=== PATIENT | female | born 1935 | race Caucasian/White ===

== ENCOUNTER 2017-03-06 18:07 | Observation (INO) | payer MEDICARE, OTHER ==
[2017-03-06 19:42] LABS: #Eosinphils 0.2 thou/uL (0.0-0.7); #Lymphocytes 2.5 thou/uL (1.20-3.40); #Monocytes 0.6 thou/uL (0.11-0.59); #Neutrophils 5.5 thou/uL (1.40-6.50); %Basophils 0.3 % (0.0-1.0); %Lymphocytes 28.1 % (21.0-51.0); %Monocytes 6.7 % (0.0-10.0); %Neutrophils 62.8 % (42.0-75.0); Hemoglobin 14.7 g/dL (12.0-16.0); Mean Corpuscular HGB CONC 33.4 g/dL (32.0-36.0); Mean Corpuscular Hemoglobin 31.9 pg (27.0-31.0); Mean Corpuscular Volume 95.5 fl (81.0-99.0); Mean Platelet Volume 6.5 fL (7.4-10.4); Platelet Count 309 thou/uL (130-400); RBC Distribution Width 13.1 % (11.5-14.5); Red Blood Cell (RBC) Count 4.61 mill/uL (4.20-5.40); White Blood Cell (WBC) Count 8.8 thou/uL (4.8-10.8)
[2017-03-06] MEDS ORDERED: Nitroglycerin 0.4 MG TAB (25 Tab Bottle) ONE (19:50)
[2017-03-06 20:03] LABS: ALT (SGPT) 26 U/L (8-55); AST (SGOT) 18 U/L (5-34); Albumin 3.9 g/dL (3.4-4.8); Alkaline Phosphatase 128 U/L (40-150); Anion Gap 13 mmol/L (10-20); BUN (Urea Nitrogen) 16 mg/dL (9.8-20.1); Bilirubin, Total 0.3 mg/dL (0.2-1.2); CK (CPK) 21 U/L (29-168); Calc. Creatinine Clearance 0 mL/min (70-130); Calcium 10.2 mg/dL (7.8-10.44); Carbon Dioxide 28 mmol/L (23-31); Chloride 103 mmol/L (98-107); Estimated GFR-MDRD 47; Globulin 3.2 g/dL (2.4-3.5); Glucose 112 mg/dL (83-110); Lipase 16 U/L (8-78); Potassium 4.6 mmol/L (3.5-5.1); Protein, Total 7.1 g/dL (6.0-8.3); Sodium 139 mmol/L (136-145)
[2017-03-06 20:07] LABS: CKMB 0.6 ng/mL (0-6.6); Troponin I Less than 0.010 ng/mL (< 0.028)
--- NOTE | 2017-03-06 20:07 | RAD ---
CHEST ONE VIEW 03/06/17 HISTORY: Chest pain. COMPARISON: None. FINDINGS: Normal cardiac silhouette. Pulmonary vessels and hilum are normal. Costophrenic angles are clear. No consolidation or mass. No pneumothorax or osseous abnormalities. IMPRESSION: No acute cardiopulmonary process. POS: [facility]
[2017-03-06 22:20] LABS: Bilirubin Negative (Negative); Blood, Urine Negative (Negative); Clarity CLEAR (Clear); Glucose, Urine (Dipstick) Negative (Negative); Leukocyte Moderate (Negative); Nitrite Negative (Negative); Protein, Urine (Dipstick) Negative (Neg-Trace); Specific Gravity, Urine 1.018 (1.002-1.036); Urobilinogen 0.2 mg/dL (0.2-1.0); pH, Urine 6.5 (5.0-9.0)
[2017-03-06 22:21] LABS: Bacteria/HPF None Seen HPF (None Seen); Hyaline Casts/LPF 4-6 HYALINE CAST LPF (0-3 Hyaline); Squamous Epithelial 0-3 HPF (0-3)
[2017-03-06 23:10] LABS: Troponin I Less than 0.010 ng/mL (< 0.028)
[2017-03-06] MEDS ORDERED: Ondansetron HCl/PF 4 MG/2 ML Vial IVP PRN (23:45)
[2017-03-06] MEDS ORDERED: Ondansetron ODT 4 MG TAB SL PRN (23:45)
[2017-03-06] MEDS ORDERED: Acetaminophen 325 MG TAB PO PRN (23:45)
[2017-03-07 00:21] VITALS: BMI 29.9
[2017-03-07] MEDS ORDERED: hydrALAZINE 20 MG/ML VIAL SLOW IVP PRN (04:58)
[2017-03-07] MEDS ORDERED: Nitroglycerin 0.4 MG TAB (25 Tab Bottle) PO PRN (05:16)
[2017-03-07] MEDS ORDERED: Acetaminophen 650 MG Suppository PR PRN (05:16)
[2017-03-07] MEDS ORDERED: Acetaminophen 325 MG TAB PO PRN (05:16)
[2017-03-07] MEDS ORDERED: Polyethylene Glycol 3350 17 GM Packet PO PRN (05:19)
[2017-03-07] MEDS ORDERED: Ondansetron ODT 8 MG TAB PO PRN (05:19)
[2017-03-07] MEDS ORDERED: Lidocaine 2% Viscous Solution 10 ML, Aluminum & Magnesium Hydroxide 30 ML SSW PRN (05:24)
[2017-03-07] MEDS ORDERED: Bisacodyl 5 MG TAB PO PRN (05:46)
[2017-03-07] MEDS ORDERED: Bisacodyl 10 MG SUPP PR PRN (05:46)
[2017-03-07] MEDS ORDERED: Levothyroxine Sodium 50 MCG TAB PO SCH (06:00)
[2017-03-07] MEDS ORDERED: Sodium Chloride 0.9% 1,000 ML IV SCH (06:00)
[2017-03-07] MEDS: clonazePAM 0.5 MG TAB PO PRN ×2 (06:09→15:44)
--- NOTE | 2017-03-07 06:22 | HP ---
PRIMARY CARE PHYSICIAN: Dr. Ivania Pradhan. CHIEF COMPLAINT: Chest pain. HISTORY OF PRESENT ILLNESS: Ms. Griffin is a pleasant 81-year-old lady who was seen at [facility] on 03/07/2017. She reports that she has had chest discomfort since 12/2016. She describes it as a burning sensation in the retrosternal region, radiating to both arms, occurring on a daily basis, 7/10 at its worst, s he has difficulty breathing when she has the symptoms. She also reports nausea and lightheadedness w ith the pain. In December, she was seen by a housekeeping supervisor hotel and had upper scope. She was told that she had infl ammation in her stomach. She was started on Protonix and Carafate and subsequently she was taken off of Protonix. She reports that the medications did not help her much. She also reports generalized weakness. She has not been eating well. She reports that yesterday she had pain that was more severe than usual. She therefore came to the e mergency room. REVIEW OF SYSTEMS: The following complete review of systems was negative, unless otherwise mentioned in the HPI or below: Constitutional: Weight loss or gain, ability to conduct usual activities. Skin: Rash, itching. Eyes: Double vision, pain. ENT/Mouth: Nose bleeding, neck stiffness, pain, tenderness. Cardiovascular: Palpitations, dyspnea on exertion, orthopnea. Respiratory: Shortness of breath, wheezing, cough, hemoptysis, fever or night sweats. Gastrointestinal: Poor appetite, abdominal pain, heartburn, nausea, vomiting, constipation, or diarr hea. Genitourinary: Urgency, frequency, dysuria, nocturia. Musculoskeletal: Pain, swelling. Neurologic/Psychiatric: Anxiety, depression. Allergy/Immunologic: Skin rash, bleeding tendency. PAST MEDICAL HISTORY: Significant for hypothyroidism. PAST SURGICAL HISTORY: Significant for cholecystectomy and back surgery. PSYCHIATRIC HISTORY: Significant for anxiety. SOCIAL HISTORY: The patient denies tobacco use, alcohol use or recreational drug use. FAMILY HISTORY: Significant for congestive heart failure in her mother. CODE STATUS: I discussed her code status. Both she and her daughter report that she has a living wi ll, but are unsure regarding her code status. They are aware that she is full code by default. They will let the medical team know if her code status changes. ALLERGIES: No known drug allergies. CURRENT MEDICATIONS: Levothyroxine 50 mcg daily, clonazepam 0.5 mg 3 times a day, vitamin D2 50,000 units weekly, sertraline 25 mg daily. PHYSICAL EXAMINATION: GENERAL: Ms. Griffin is awake and alert, not in acute distress. VITAL SIGNS: Blood pressure is 179/80, pulse is 88. She is breathing at rate of 16, and saturating 99% on room air. She is afebrile. EYES: No scleral icterus. No conjunctival pallor. ENT: Moist mucosal membranes, no oropharyngeal erythema or exudates. NECK: Supple, nontender, normal range of movement, trachea is midline. CARDIOVASCULAR: S1 and S2 are heard, regular. Peripheral pulses are palpable. No carotid bruit, no pericardial rub. ABDOMEN: Soft, nontender, bowel sounds heard, no hepatomegaly, no splenomegaly. NEUROLOGIC: Cranial nerves II through XII are intact. Deep tendon reflexes are 2+. SKIN: No rashes or subcutaneous nodules. MUSCULOSKELETAL: Power is 5/5 in all 4 extremities. Normal range of movement at all major extremity joints. LYMPHATIC: No cervical lymphadenopathy. PSYCHIATRIC: Normal mood, normal affect, patient is oriented to person, place, and time. LABORATORY DATA AND IMAGING: Ms. Griffin's labs and investigations were reviewed. I reviewed her elect rocardiogram, which shows sinus tachycardia with ST depressions in the lateral leads. I also reviewe d her chest x-ray, which does not show any pulmonary infiltrates. Laboratory investigation show an u nremarkable CBC, mildly elevated creatinine of 1.12, otherwise unremarkable comprehensive metabolic p rofile, normal troponin I x3, normal lipase and a slightly elevated BNP of 129. Urinalysis is positi ve for moderate amount of leukocyte esterase. ASSESSMENT AND PLAN: Ms. Griffin is a pleasant 81-year-old lady who was seen at [facility] on 03/07/2017. Her problem list includes: 1. Chest pain: Ms. Griffin's chest pain is atypical for acute coronary syndrome. However, given her a ge, she will be admitted to the hospital for telemetry monitoring and to rule out acute coronary synd arnie. We will check nuclear stress test. We will also check D-dimer to rule out venous thromboembol ism. 2. Hypothyroidism: We will continue Synthroid, check TSH. 3. Renal insufficiency: Chronicity unclear. Provide intravenous fluids, given patient's history of poor oral intake. 4. Positive urinalysis: The patient denies any dysuria or increased frequency of urination. I had a lengthy discussion with the patient, we will hold off on antibiotics. Many thanks for allowing me to participate in your patient's care. Please feel free to contact me wi th any questions or concerns. LEVEL OF RISK: High. LEVEL OF COMPLEXITY: High.
[2017-03-07] MEDS ORDERED: FLU VACC TS2017-18 (>65YR) 0.5 ML SYRINGE IM ONE (09:00)
[2017-03-07 15:23] VITALS: BP 148/73; TEMP 97.9
--- NOTE | 2017-03-07 15:43 | NM ---
NUCLEAR MEDICINE CARDIAC MYOCARDIAL PERFUSION SPECT EJECTION FRACTION STUDY WALL MOTION CINE: HISTORY: 81-year-old female with chest pain. TECHNIQUE: Number of days: 1 Rest study: Tc99m sestamibi (Cardiolite) dose: 10.5 mCi Pharmacologic stress: adenosine dose: 47 mg Stress study: Tc99m sestamibi (Cardiolite) dose: 30.2 mCi FINDINGS: CARDIAC (MYOCARDIAL PERFUSION) SPECT Distribution of sestamibi is homogeneous throughout the left ventricle, with no fixed or reversible m yocardial perfusion defects. EJECTION FRACTION STUDY EF = 95% WALL MOTION CINE The left ventricular wall motion is normal. There is normal systolic wall thickening. IMPRESSION: Normal. pat POS: [facility]
[2017-03-07] MEDS ORDERED: ADENOSINE 60 MG/20 ML VIAL ONE (16:39)
[2017-03-07] MEDS ORDERED: ALPRAZolam 0.5 MG TAB PO SCH (21:00)
--- NOTE | 2017-03-08 15:25 | EKG ---
Test Reason : CP Blood Pressure : / mmHG Vent. Rate : 106 BPM Atrial Rate : 106 BPM P-R Int : 204 ms QRS Dur : 082 ms QT Int : 340 ms P-R-T Axes : 076 -01 097 degrees QTc Int : 451 ms Sinus tachycardia Nonspecific ST and T wave abnormality Abnormal ECG Slight depression lateral leads, no reciprocal, changes Confirmed by GANGA DELGADO M.D. ([id number]), newspaper editor KYA NYE ([id number]) on 03/08/2017 3:25:34 PM Referred By: Confirmed By:GANGA DELGADO M.D.
--- NOTE | 2017-03-08 15:26 | EKG ---
Test Reason : Blood Pressure : / mmHG Vent. Rate : 083 BPM Atrial Rate : 083 BPM P-R Int : 256 ms QRS Dur : 074 ms QT Int : 368 ms P-R-T Axes : 082 -10 014 degrees QTc Int : 432 ms Sinus rhythm with 1st degree A-V block Otherwise normal ECG Confirmed by SANDY Najera, GANGA ([id number]), editor index KYA NYE ([id number]) on 03/08/2017 3:26:21 PM Referred By: Confirmed By:GANGA DELGADO M.D.
[2017-03-10] MEDS ORDERED: Ergocalciferol 1.25 MG(50,000 UNITS) CAP PO SCH (09:00)
--- NOTE | 2017-03-10 10:45 | STRESS ---
Acquisition Time: 2017-03-07 11:23:14 Total Exercise Time: 00:04:00 Test Indications: CHEST PAIN Medications: Protocol: ADENOSINE Max HR: 101 BPM 71% of Pred: 141 BPM Max BP: 146/076 mmHG Max Work Load: 1.0 METS THE PATIENT WAS INJECTED WITH ADENOSINE. SHE DID NOT DEVELOP CHEST PAIN. THERE WAS NO SIGNIFICANT ST DEPRESSION. AWAIT NUCLEAR IMAGES FOR DEFINITIVE DIAGNOSIS. Confirmed by AILEEN RÍOS ([id number]), design editor JAXON DIAZ ([id number]) on 03/10/2017 10:45:33 AM Referred By: MD Rustam MCLEAN Confirmed By:AILEEN RÍOS
--- NOTE | 2017-03-10 11:51 | DIS ---
For details of the history and physical, refer to dictations on record. SUMMARY: This is a 81-year-old female patient who presented with chest pain, felt to be atypical; ho wever, given her advanced age, the patient was admitted and ruled out of any acute coronary syndrome. Patient did undergo stress test, which came back and did not show any evidence of ischemia, essenti ally normal myocardial perfusion test. As a result of having maintained sustained clinical improveme nt, patient was subsequently discharged on the following medications: Xanax 0.5 mg p.o. b.i.d., giovana min D 50,000 units every 7 days, Synthroid 50 mcg p.o. daily, Zofran 8 mg p.o. q.8 hours p.r.n., Melony Lax 17 grams p.o. daily p.r.n., Zoloft 25 mg p.o. daily. DISCHARGE INSTRUCTIONS: 1. Follow up with the primary care physician. 2. Re-present here in case of any relapse or deterioration in clinical condition.
== END 2017-03-07 18:29 | disposition home or self-care (01) ==
LOC: ERS 18:07 → 2SW 21:01
PROVIDERS: ADMIT Internal Medicine; ATTEND Internal Medicine
DX: R07.2 Precordial pain (principal); R53.1 Weakness; E03.9 Hypothyroidism, unspecified; F41.9 Anxiety disorder, unspecified; N28.9 Disorder of kidney and ureter, unspecified; Z79.899 Other long term (current) drug therapy; Z88.2 Allergy status to sulfonamides; Z90.49 Acquired absence of other specified parts of digestive tract; Z98.890 Other specified postprocedural states; Z82.49 Family history of ischemic heart disease and other diseases of the circulatory system
CPT/HCPCS: 71045; 78452; 80053; 82550; 82553; 83690; 83880; 84484 ×3; 85025; 85379; 93005; 93017; 96361 ×2; 96374; 99285; A9500; G0008; G0378; Q2036; 36415; 81003; 81015; 90471; 90682; 96360; J0153; J0360

== ENCOUNTER 2022-12-22 19:40 | Inpatient (IN) | payer MEDICARE ==
[2022-12-22 20:09] LABS: #Monocytes 0.8 thou/uL (0.11-0.59); #Neutrophils 11.6 thou/uL (1.40-6.50); %Basophils 0.2 % (0.0-1.0); %Lymphocytes 6.8 % (21.0-51.0); %Monocytes 5.6 % (0.0-10.0); Hemoglobin 11.1 g/dL (12.0-16.0); Mean Corpuscular HGB CONC 33.6 g/dL (32.0-36.0); Mean Corpuscular Hemoglobin 31.9 pg (27.0-31.0); Mean Corpuscular Volume 94.8 fl (78.0-98.0); Mean Platelet Volume 9.6 fL (7.4-10.4); Platelet Count 228 10x3/uL (130-400); RBC Distribution Width 14.7 % (11.5-14.5); Red Blood Cell (RBC) Count 3.48 mill/uL (4.20-5.40); White Blood Cell (WBC) Count 13.4 10x3/uL (4.8-10.8)
[2022-12-22 20:37] LABS: ALT (SGPT) 37 U/L (8-55); AST (SGOT) 28 U/L (5-34); Albumin 3.8 g/dL (3.4-4.8); Alkaline Phosphatase 143 U/L (40-110); Anion Gap 13 mmol/L (10-20); BUN (Urea Nitrogen) 28 mg/dL (9.8-20.1); Bilirubin, Total 0.5 mg/dL (0.2-1.2); Calc. Creatinine Clearance 0 mL/min (70-130); Carbon Dioxide 21 mmol/L (23-31); Chloride 101 mmol/L (98-107); Estimated GFR 46; Globulin 2.9 g/dL (2.4-3.5); Glucose 162 mg/dL (83-110); Protein, Total 6.7 g/dL (5.8-8.1); Sodium 131 mmol/L (136-145)
[2022-12-22 20:45] LABS: Troponin I 0.514 ng/mL (< 0.028)
[2022-12-22] MEDS ORDERED: cefTRIAXone (ROCEPHIN) 1 GM VIAL ONE (21:00)
[2022-12-22 21:13] LABS: Bacteria/HPF 3+ HPF (None Seen); Bilirubin Negative (Negative); Blood, Urine 3+ (Negative); CAUTI Indications for Culture Alt mental st,lethar; Clarity Extra Turbid (Clear); Glucose, Urine (Dipstick) Normal (Negative); Ketone, Urine Negative (Negative); Leukocyte 500 Leu/uL (Negative); Nitrite 2+ (Negative); Protein, Urine (Dipstick) 100 mg/dL (Neg-Trace); Specific Gravity, Urine 1.021 (1.002-1.036); Squamous Epithelial 0-3 HPF (0-3); Urobilinogen Normal mg/dL (Less than 2); WBC/HPF Greater than 50 HPF (0-3)
[2022-12-22 21:15] LABS: Urine Culture Reflex Yes Yes
[2022-12-22] MEDS ORDERED: Aspirin 325 MG TAB ONE (21:54)
[2022-12-22] MEDS ORDERED: LevoFLOXacin 750 mg/D5W 150 ml Premix Bag ONE (21:54)
[2022-12-22] MEDS ORDERED: Aspirin Chewable 81 MG TAB ONE (21:56)
[2022-12-22] MEDS ORDERED: Acetaminophen 325 MG TAB PO PRN (22:05)
[2022-12-22] MEDS ORDERED: Ondansetron PF 4 MG/2 ML Vial IVP PRN (22:05)
[2022-12-23 00:25] VITALS: BMI 32.1
[2022-12-23 01:32] LABS: Troponin I 0.405 ng/mL (< 0.028)
[2022-12-23 04:58] LABS: Hematocrit 31.5 % (36.0-47.0); Hemoglobin 10.3 g/dL (12.0-16.0); Mean Corpuscular HGB CONC 32.7 g/dL (32.0-36.0); Mean Corpuscular Hemoglobin 31.6 pg (27.0-31.0); Mean Corpuscular Volume 96.6 fl (78.0-98.0); Platelet Count 202 10x3/uL (130-400); RBC Distribution Width 14.7 % (11.5-14.5); Red Blood Cell (RBC) Count 3.26 mill/uL (4.20-5.40); White Blood Cell (WBC) Count 12.1 10x3/uL (4.8-10.8)
[2022-12-23 05:09] LABS: Delete Auto Diff?? YES; Manual Diff?? YES
[2022-12-23 05:30] LABS: Anion Gap 15 mmol/L (10-20); BUN (Urea Nitrogen) 30 mg/dL (9.8-20.1); Calc. Creatinine Clearance 43 mL/min (70-130); Calcium 8.4 mg/dL (7.8-10.44); Carbon Dioxide 19 mmol/L (23-31); Chloride 104 mmol/L (98-107); Estimated GFR 43; Glucose 91 mg/dL (83-110); Sodium 134 mmol/L (136-145)
[2022-12-23 05:34] LABS: Critical Call Chem Troponin I RESULT DECREASING; Troponin I 0.404 ng/mL (< 0.028)
[2022-12-23 06:08] LABS: Band 12 % (5-11); CellaVision Operator ID lab.abc; Lymphocytes 7 % (21-51); Monocytes 4 % (0-10); Neutrophil 77 % (42-75); Platelet Adequacy Comment Platelets Normal; RBC Morphology Within Normal Limits; Total Cell Count 100
[2022-12-23] MEDS: Sodium Chloride 0.9% 1,000 ML IV SCH ×2 (09:22→21:29)
[2022-12-23] MEDS: Cefepime 1 GM in Sodium Chloride 0.9% 100 ML IVPB SCH (16:57)
[2022-12-24] MEDS: Cefepime 1 GM in Sodium Chloride 0.9% 100 ML IVPB SCH ×2 (02:58→17:03)
[2022-12-24 04:30] LABS: #Eosinphils 0.1 thou/uL (0.0-0.7); #Neutrophils 6.8 thou/uL (1.40-6.50); %Basophils 0.2 % (0.0-1.0); %Eosinophils 1.1 % (0.0-10.0); %Lymphocytes 19.5 % (21.0-51.0); %Monocytes 10.3 % (0.0-10.0); %Neutrophils 68.6 % (42.0-75.0); Hematocrit 32.6 % (36.0-47.0); Hemoglobin 10.5 g/dL (12.0-16.0); Mean Corpuscular HGB CONC 32.2 g/dL (32.0-36.0); Mean Corpuscular Hemoglobin 31.5 pg (27.0-31.0); Mean Corpuscular Volume 97.9 fl (78.0-98.0); Platelet Count 184 10x3/uL (130-400); RBC Distribution Width 15.1 % (11.5-14.5); Red Blood Cell (RBC) Count 3.33 mill/uL (4.20-5.40); White Blood Cell (WBC) Count 9.9 10x3/uL (4.8-10.8)
[2022-12-24 04:57] LABS: Anion Gap 13 mmol/L (10-20); BUN (Urea Nitrogen) 31 mg/dL (9.8-20.1); Calc. Creatinine Clearance 42 mL/min (70-130); Calcium 8.8 mg/dL (7.8-10.44); Carbon Dioxide 20 mmol/L (23-31); Chloride 107 mmol/L (98-107); Estimated GFR 41; Glucose 116 mg/dL (83-110); Potassium 4.2 mmol/L (3.5-5.1); Sodium 136 mmol/L (136-145)
[2022-12-24] MEDS: Levothyroxine Sodium 50 MCG TAB PO SCH (05:59)
[2022-12-24] MEDS: Sodium Chloride 0.9% 1,000 ML IV SCH (09:39)
[2022-12-24] MEDS: Sertraline 25 MG TAB PO SCH (09:39)
[2022-12-24] MEDS ORDERED: cefTRIAXone\\ROCEPHIN 2 GM in Sodium Chloride 0.9% 100 ML IVPB SCH (18:45)
[2022-12-24] MEDS ORDERED: LevoFLOXacin 750 mg/D5W 750 MG in Premix 1 BAG IVPB SCH (22:00)
[2022-12-25 04:39] LABS: #Eosinphils 0.2 thou/uL (0.0-0.7); #Monocytes 0.7 thou/uL (0.11-0.59); #Neutrophils 4.2 thou/uL (1.40-6.50); %Basophils 0.1 % (0.0-1.0); %Eosinophils 2.2 % (0.0-10.0); %Lymphocytes 24.1 % (21.0-51.0); %Monocytes 10.5 % (0.0-10.0); %Neutrophils 62.7 % (42.0-75.0); Hematocrit 28.4 % (36.0-47.0); Hemoglobin 9.3 g/dL (12.0-16.0); Mean Corpuscular HGB CONC 32.7 g/dL (32.0-36.0); Mean Corpuscular Hemoglobin 31.5 pg (27.0-31.0); Mean Corpuscular Volume 96.3 fl (78.0-98.0); Mean Platelet Volume 10.6 fL (7.4-10.4); Platelet Count 191 10x3/uL (130-400); Red Blood Cell (RBC) Count 2.95 mill/uL (4.20-5.40); White Blood Cell (WBC) Count 6.7 10x3/uL (4.8-10.8)
[2022-12-25 05:09] LABS: Anion Gap 13 mmol/L (10-20); BUN (Urea Nitrogen) 25 mg/dL (9.8-20.1); Calc. Creatinine Clearance 54 mL/min (70-130); Calcium 8.4 mg/dL (7.8-10.44); Carbon Dioxide 20 mmol/L (23-31); Chloride 107 mmol/L (98-107); Estimated GFR 57; Glucose 121 mg/dL (83-110); Potassium 4.1 mmol/L (3.5-5.1); Sodium 136 mmol/L (136-145)
[2022-12-25] MEDS: Levothyroxine Sodium 50 MCG TAB PO SCH (06:46)
[2022-12-25] MEDS: Sertraline 25 MG TAB PO SCH (08:34)
[2022-12-25 15:43] VITALS: BP 195/91; TEMP 98.2
== END 2022-12-25 17:25 | disposition home or self-care (01) | DRG 871 ==
LOC: ERS 19:40 → 2NO 21:55
PROVIDERS: ADMIT Internal Medicine; ATTEND Family Medicine
DX: A41.51 Sepsis due to Escherichia coli [E. coli] (principal); G93.41 Metabolic encephalopathy; N39.0 Urinary tract infection, site not specified; N17.9 Acute kidney failure, unspecified; C25.9 Malignant neoplasm of pancreas, unspecified; I24.89 Other forms of acute ischemic heart disease; R65.20 Severe sepsis without septic shock; F41.9 Anxiety disorder, unspecified; E03.9 Hypothyroidism, unspecified; N18.30 Chronic kidney disease, stage 3 unspecified; F32.A Depression, unspecified; I44.0 Atrioventricular block, first degree; Z66 Do not resuscitate; F39 Unspecified mood [affective] disorder; Z90.49 Acquired absence of other specified parts of digestive tract; Z98.890 Other specified postprocedural states; Z88.2 Allergy status to sulfonamides; Z79.899 Other long term (current) drug therapy
CPT/HCPCS: 36415; 71045; 80048; 80053; 81001; 83605; 84484; 85025; 87040; 87077; 87086; 87149; 87186; 93005; J0692; J0696; J1956; J3490; J7050